=== PATIENT | female | born 1985 | race Hispanic/Latino ===

== ENCOUNTER 2017-12-18 12:19 | Emergency (ER) | payer OTHER ==
[2017-12-18] MEDS ORDERED: DiphenhydrAMINE HCL 50 MG/ML VIAL ONE (12:54)
[2017-12-18] MEDS ORDERED: KETOROLAC TROMETHAMINE 30MG/ML ONE (12:54)
[2017-12-18] MEDS ORDERED: ONDANSETRON ODT 4 MG TAB ONE (12:55)
== END 2017-12-18 14:27 | disposition home or self-care (01) ==
LOC: EDH 12:19
DX: G43.909 Migraine, unspecified, not intractable, without status migrainosus (principal); E11.9 Type 2 diabetes mellitus without complications
CPT/HCPCS: 96372 ×2; 99284; J1200; J1885

== ENCOUNTER 2018-07-29 10:26 | Emergency (ER) | payer BC, OTHER ==
[2018-07-29] MEDS ORDERED: SODIUM CHLORIDE 0.9% 1000ML 1,000 ML IV ONE (10:54)
[2018-07-29] MEDS ORDERED: DiphenhydrAMINE HCL 50 MG/ML VIAL ONE (10:54)
[2018-07-29] MEDS ORDERED: ONDANSETRON HCL 4 MG/2 ML VIAL ONE (10:54)
[2018-07-29] MEDS ORDERED: METOCLOPRAMIDE 10 MG/2 ML VIAL ONE (10:54)
[2018-07-29 11:02] LABS: APPEARANCE,URINE Clear (CLEAR); BILIRUBIN,URINE Negative (NEGATIVE); COLOR,URINE Yellow (YELLOW); GLUCOSE, URINE (UA) 500 mg/dL (NEGATIVE); KETONES,URINE Trace mg/dL (NEGATIVE); LEUKOCYTE ESTERASE ,URINE Negative (NEGATIVE); NITRATE,URINE Negative (NEGATIVE); OCCULT BLOOD,URINE Negative (NEGATIVE); PH,URINE 5.5 (5.0-8.0); PROTEIN,URINE 300 (NEGATIVE); UROBILINOGEN,URINE 0.2 mg/dL (0.2-1.0)
[2018-07-29 11:05] LABS: HCG,QUAL RESULT NEGATIVE (NEGATIVE)
[2018-07-29 11:11] LABS: BASOPHILS % (AUTO) 0.6 % (0.0-5.0); HEMATOCRIT 40.6 % (36-48); LYMPHOCYTES % (AUTO) 27.2 % (21.0-51.0); MEAN CORPUSCULAR HEMOGLOBIN 28.3 pg (27.0-33.0); MEAN CORPUSCULAR HGB CONC 34.1 g/dL (32.0-36.0); MEAN CORPUSCULAR VOLUME 82.9 fL (79-99); MONOCYTES % (AUTO) 5.6 % (3.0-13.0); NEUTROPHILS % (AUTO) 64.6 % (40.0-77.0); PLATELET COUNT (AUTO) 172 K/uL (130-400); RED CELL DISTRIBUTION WIDTH 12.8 % (11.0-15.5); WHITE BLOOD COUNT (AUTO) 6.7 K/uL (4.8-10.8)
[2018-07-29 11:14] LABS: BACTERIA,URINE Few /HPF (None Seen); MUCUS,URINE Few LPF (None Seen); RBC,URINE None Seen /HPF (0-1); SQUAMOUS EPITHELIAL CELL,UR Few /HPF (0-2)
[2018-07-29 11:15] LABS: WBC,URINE None Seen /HPF (0-1)
[2018-07-29 11:16] LABS: CREATININE 0.8 mg/dL (0.5-1.5); POTASSIUM 3.9 mmol/L (3.5-5.1)
[2018-07-29] MEDS ORDERED: KETOROLAC TROMETHAMINE 30MG/ML ONE (11:39)
== END 2018-07-29 12:30 | disposition home or self-care (01) ==
LOC: EDH 10:26
DX: G43.909 Migraine, unspecified, not intractable, without status migrainosus (principal); R11.2 Nausea with vomiting, unspecified; E11.9 Type 2 diabetes mellitus without complications; Z79.4 Long term (current) use of insulin
CPT/HCPCS: 36415; 80048; 81001; 81025; 85025; 96361; 96374; 96375; 99284; J1200; J1885; J2405; J2765; J7030

== ENCOUNTER 2018-08-27 17:10 | Emergency (ER) | payer BC ==
[2018-08-27] MEDS ORDERED: ONDANSETRON HCL 4 MG/2 ML VIAL ONE (17:51)
[2018-08-27] MEDS ORDERED: KETOROLAC TROMETHAMINE 30MG/ML ONE (17:51)
[2018-08-27] MEDS ORDERED: SODIUM CHLORIDE 0.9% 1000ML 1,000 ML IV ONE (17:51)
[2018-08-27] MEDS ORDERED: DEXAMETHASONE SOD PHOSPHATE 10MG/ML 1ML VIAL ONE (17:51)
[2018-08-27] MEDS ORDERED: DiphenhydrAMINE HCL 25 MG/10 ML ELIXIR UDCUP ONE (17:53)
[2018-08-27 17:54] LABS: APPEARANCE,URINE Clear (CLEAR); BILIRUBIN,URINE Negative (NEGATIVE); COLOR,URINE Yellow (YELLOW); GLUCOSE, URINE (UA) >=1000 mg/dL (NEGATIVE); KETONES,URINE >=160 mg/dL (NEGATIVE); LEUKOCYTE ESTERASE ,URINE Negative (NEGATIVE); NITRATE,URINE Negative (NEGATIVE); OCCULT BLOOD,URINE Moderate (NEGATIVE); PH,URINE 5.5 (5.0-8.0); PROTEIN,URINE 300 (NEGATIVE)
[2018-08-27 18:07] LABS: HCG,QUAL RESULT NEGATIVE (NEGATIVE)
[2018-08-27 18:22] LABS: BACTERIA,URINE Rare /HPF (None Seen); MUCUS,URINE Few LPF (None Seen); RBC,URINE 0-1 /HPF (0-1); SQUAMOUS EPITHELIAL CELL,UR Few /HPF (0-2); WBC,URINE 0-1 /HPF (0-1)
[2018-08-27 19:28] LABS: AMPHET/METH SCREEN,URINE NEGATIVE (NEGATIVE); BARBITURATE SCREEN, URINE NEGATIVE (NEGATIVE); BENZODIAZEPINES SCREEN,URINE NEGATIVE (NEGATIVE); CANNABINOID SCREEN,URINE NEGATIVE (NEGATIVE); COCAINE SCREEN,URINE NEGATIVE (NEGATIVE); OPIATE SCREEN,URINE NEGATIVE (NEGATIVE); PHENCYCLIDINE SCREEN,URINE NEGATIVE (NEGATIVE)
[2018-08-27] MEDS ORDERED: METOCLOPRAMIDE 10 MG/2 ML VIAL ONE (19:36)
== END 2018-08-27 20:33 | disposition home or self-care (01) ==
LOC: EDH 17:10
DX: G43.909 Migraine, unspecified, not intractable, without status migrainosus (principal); E11.9 Type 2 diabetes mellitus without complications
CPT/HCPCS: 80305; 81001; 81025; 96361; 96374; 96375; 99284; J1100; J1885; J2405; J2765; J7030